=== PATIENT | female | born 1945 | race Caucasian/White ===

== ENCOUNTER → 2017-09-19 15:06 | Outpatient (CLI) | payer MEDICARE, SELFPAY ==
--- NOTE | 2017-09-19 15:10 | CT_ITS ---
STUDY: CT SCAN HIP LEFT REASON FOR EXAM: Female, 72 years old. Left hip pain following a fall. RADIATION DOSAGE (If Supplied By Facility): CTDIvol = ( 15.37 ) mGy, DLP = ( 575.92 ) mGycm. Individualized dose optimization techniques were used for this CT.? TECHNIQUE: Multiple axial tomographic images were obtained of the left hip without intravenous contrast administration. Coronal and sagittal reconstruction was obtained as well. COMPARISON: None. FINDINGS: Degenerative spur is seen along the superior lateral portion of the acetabulum is a mild degree of joint space narrowing. There is no evidence of fracture or dislocation. 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 There is no evidence of fracture or dislocation. Electronically Signed: Bob Hester MD at 15:43 EST Tel [phone], Service support ,
== END ==
PROVIDERS: Family Provider Family Medicine; PCP Family Medicine; Visit Provider Physician Assistant
DX: M16.12 Unilateral primary osteoarthritis, left hip (principal); M25.552 Pain in left hip
CPT/HCPCS: 73700

== ENCOUNTER 2021-09-07 10:34 | Emergency (ER) | payer MEDICARE, MEDICAID, SELFPAY ==
[2021-09-07 10:37] VITALS: BP 149/110; PULSE 89; RESP 22; TEMP 35.8; BMI 21.2
[2021-09-07 10:58] VITALS: BP 166/73; PULSE 91; PULSE 92; RESP 26; TEMP 35.8; O2SAT 96; O2SAT 97
--- NOTE | 2021-09-07 11:11 | EKG12_ITS ---
Test Reason : BACK PAIN Blood Pressure : / mmHG Vent. Rate : 088 BPM Atrial Rate : 088 BPM P-R Int : 148 ms QRS Dur : 084 ms QT Int : 372 ms P-R-T Axes : 083 078 075 degrees QTc Int : 450 ms Normal sinus rhythm Normal ECG Confirmed by MAXIMILIANO MCMAHON, ABIGAIL ([id number]), pictures editor AYDE NEGRON ([id number]) on 09/08/2021 9:37:39 AM Referred By: YUMIKO Confirmed By:ABIGAIL VIERA MD
--- NOTE | 2021-09-07 11:11 | RAD_ITS ---
STUDY: X-RAY CHEST REASON FOR EXAM: Female, 76 years old. Chest pain TECHNIQUE: Single AP portable view of the chest. COMPARISON: Comparison is made with prior study 03/23/2015. FINDINGS: EKG electrodes are seen. There is hyperinflation of the lungs consistent with chronic obstructive lung disease (COPD). Stable calcified granuloma in the right upper lobe. There is no demonstrated pleural abnormality. Normal size heart. Normal mediastinum and kaylen. Normal visualized pulmonary arteries. There is atherosclerotic calcification of the aortic arch with tortuosity. There are diffuse degenerative changes of the visualized thoracic spine. There is degenerative osteoarthritis of the bilateral shoulders. There is no demonstrated abnormality of the visualized soft tissue structures of the upper abdomen. RAD/Chest 1 View (Portable) IMPRESSION: Hyperinflation. No acute abnormality is seen. Electronically Signed: Bob Hester MD at 11:52 EST , Service support ,
--- NOTE | 2021-09-07 11:20 | EDS_ITS ---
HPI History of Present Illness Chief Complaint: Shortness of Breath Narrative Narrative: 76-year-old female with history of COPD, diabetes presenting with right rib pain. She reports that it started on Saturday. She was seen and evaluated on 09/05/2021 at [facility] and had blood work and imaging done. She reports that she had a CAT scan of the chest. She reports that she had a bad experience with the doctor because he would not do a chest x-ray. Patient does not know what her blood work showed PFSH PFS Home Medications Creon 2 ea PO TIDCM 03/23/15 [History Last Taken 03/22/15] budesonide-formoterol [Symbicort] 1 puff INHALATION BID 03/23/15 [History Last Taken 03/22/15] ezetimibe [Zetia] 10 mg PO DAILY 03/23/15 [History Last Taken 03/22/15] pregabalin [Lyrica] 300 mg PO QHS 03/23/15 [History Last Taken 03/22/15] amitriptyline 75 mg PO QHS 07/11/16 [History Last Taken Unknown] Invokana 300 mg PO DAILY 10/22/16 [History Last Taken Unknown] acetaminophen 1,000 mg PO Q8 #60 tablet 11/03/16 [Rx Last Taken Unknown] albuterol sulfate 2.5 mg INHALATION Q6HWA.RT vial.neb. 11/03/16 [Rx Last Taken Unknown] budesonide 0.5 mg INHALATION Q12H.RT ampul.neb. 11/03/16 [Rx Last Taken U nknown] aspirin 81 mg PO DAILY 12/28/16 [History Last Taken Unknown] hydrocodone-acetaminophen 1 - 2 tab PO Q4H PRN PRN #20 tablet 12/28/16 [Rx Last Taken Unknown] donepezil 10 mg PO QHS 09/07/21 [History Last Taken Unknown] lidocaine [Lidoderm] 1 patch TOPICAL DAILY PRN #1 ea 09/07/21 [Rx Last Taken Unknown] Allergy/AdvReac Type Severity Reaction Status Date / Time rosuvastatin [From Crestor] Allergy BREATHING Verified 09/07/21 11:02 PROBLEMS ALL STATINS Allergy Other Uncoded 09/07/21 11:02 Social History Smoking Status: Current every day smoker tobacco type: cigarettes ROS ROS ED Constitutional Constitutional ED: Denies chills or fever(s) Eyes Eyes: Denies blurry vision or change in vision ENT ENT ED: Denies rhinorrhea or sore throat Cardiovascular Cardiovascular: Reports as per HPI Respiratory/Chest Respiratory/Chest: Reports cough and dyspnea Gastrointestinal Gastrointestinal: Denies abdominal pain or nausea Genitourinary Genitourinary ED: Denies dysuria or hematuria Musculoskeletal Musculoskeletal: Denies arthralgias or myalgias Integumentary Denies Abrasions or rash Neurologic Neurologic: Denies headache(s) or weakness EXAM Physical Exam Const Vital Signs: 09/07/21 10:37 09/07/21 10:58 09/07/21 13:12 Temperature 96.5 F L 96.5 F L Temperature Source Temporal Temporal Pulse Rate 89 91 83 Respiratory Rate 22 H 26 H 15 Blood Pressure 149/110 H 166/73 H 127/51 H Blood Pressure Mean 123 104 76 Pulse Ox 97 96 Oxygen Delivery Method Room Air Room Air Positive well developed General Appearance ED: well developed and NAD; Negative for pallor HEENT Reports moist mucous membranes normocephalic and atraumatic Eyes PERRL and EOMs intact bilaterally General Eye ED: Negative for pale conjunctiva or scleral icterus Chest Wall Chest Narrative: Tenderness to palpation diffusely over the right ribs. No c repitance. Equal symmetric breath sounds and chest wall rise. Resp normal respiratory effort and clear to auscultation bilaterally Effort and Inspection: Negative for respiratory distress Cardio regular rate and regular rhythm Extremity normal to inspection General Extremety ED: Negative for edema or tenderness General Extremity: Negative for edema Neuro oriented x3 Sensorium / Orientation: awake and alert Psych mental status grossly normal Skin General Skin Exam: Negative for jaundice or pallor Heart Score History: Slightly/Non-Suspicious ECG: Normal Age: >/= 65 years Risk Factors: >/= 3 Risk Factors or History of CAD Score: 4 MDM MDM MDM Narrative Medical decision making narrative: Patient presenting with right-sided rib pain which has been present since Saturday. She states that she was already seen at [facility] patient has had emergency room and evaluated. I obtained an EKG on arrival due to her rib pain and on my interpretation this is a sinus rhythm with a ventricular rate of 80 bpm without sign of ischemic change. Her chest x-ray on my interpretation shows no acute cardiopulmonary process. CBC and BMP are unremarkable. LFTs are normal with exception of an alkaline phosphatase of 118. Lipase is 140. High-sensitivity troponin initially is 11 and at 2 hours that is 8. Sensation on the right compared I obtained her work- up through [facility] from [place] and she did have a full work-up with a normal CBC, CMP. Her BNP was 113 and the range for them is a 0-4 50 so this was negative. High-sensitivity for heart enzymes were normal. Lipase was slightly elevated at 346 from their reference range of 23-300 however it is not significantly high and it is normal here today. Patient had a CTA of the chest which did not show any infiltrates, dissection, home Eric emboli. She had a CT of the abdomen and pelvis which was negative for any acute findings. She states she continues to have pain. She believes this is due to coughing. I spoke with her primary care physician Dr. Ashraf. He states that she always has pain somewhere in her body. He treats her with Lyrica and with Ultram. He states that the rib pain is new. He recommended not changing her pain medications. He did not want me to supplement with her with anything stronger. I did give her some Lidoderm patches and I placed one on her ribs while she was here. I do not believe she needs a repeat CTA. The patient and her daughter were counseled on my conversation with her primary care physician and they are amenable to this course. He wanted to see them in office and follow-up. Patient will be discharged home in stable condition. Impression: 1. Right-sided chest pain 2. Cough Lab Data Labs: Laboratory Results - last 24 hr 09/07/21 09/07/21 09/07/21 11:17 11:17 13:17 WBC 7.8 RBC 4.27 Hgb 13.5 Hct 40.4 MCV 94.6 MCH 31.6 MCHC 33.4 RDW Std Deviation 47.7 H RDW Coeff of Robert 13.6 Plt Count 276 MPV 9.5 Immature Gran % (Auto) 0.300 Neut % (Auto) 74.8 H Lymph % (Auto) 17.0 L [place] % (Auto) 6.5 Eos % (Auto) 0.9 Baso % (Auto) 0.5 Absolute Neuts (auto) 5.9 Absolute Lymphs (auto) 1.33 Nucleated RBC % 0 Sodium 136 Potassium 3.9 Chloride 101 Carbon Dioxide 28.0 Anion Gap 7 BUN 14 Creatinine 0.80 Estim Creat Clear Calc 49.49 Est GFR (MDRD) Af Amer 90 Est GFR (MDRD) Non-Af 74 BUN/Creatinine Ratio 17.5 Glucose 196 H Calcium 9.7 Total Bilirubin 0.30 Direct Bilirubin 0.12 AST 59 H ALT 32 Alkaline Phosphatase 118 H Troponin I High Sens 11 8 Total Protein 6.6 Albumin 3.3 Globulin 3.3 Lipase 140 Radiography Diagnostic Testing: Clinical Impression(s) from Imaging Studies Chest X-Ray 09/07/21 11:11 IMPRESSION: Hyperinflation. No acute abnormality is seen. Electronically Signed: Bob Hester MD at 11:52 EST , Service support , Discharge Plan Triage Chief Complaint: Shortness of Breath ED Provider: Valeriano Bellamy Dx/Rx/DC Orders Instructions: ED Chest Pain, Noncardiac Prescriptions: New lidocaine [Lidoderm] 5 % adhesive patch,medicated 1 patch topical DAILY PRN (Reason: pain) Qty: 1 RF: 0 No Action ezetimibe [Zetia] 10 MG tablet 10 mg PO DAILY RF: 0 pregabalin [Lyrica] 150 MG capsule 300 mg PO QHS RF: 0 budesonide-formoterol [Symbicort] 6.9 GM HFA aerosol inhaler 1 puff inhalation BID RF: 0 Creon 1 EACH capsule,delayed release(DR/EC) 2 ea PO TIDCM RF: 0 amitriptyline 75 MG tablet 75 mg PO QHS RF: 0 Invokana 300 MG tablet 300 mg PO DAILY RF: 0 albuterol sulfate 2.5 MG/3 ML solution for nebulization 2.5 mg inhalation Q6HWA.RT RF: 0 acetaminophen 500 MG tablet 1,000 mg PO Q8 Qty: 60 RF: 0 budesonide 0.5 MG/2 ML suspension for nebulization 0.5 mg inhalation Q12H.RT RF: 0 aspirin 325 MG tablet 81 mg PO DAILY RF: 0 hydrocodone-acetaminophen 1 TABLET tablet 1 - 2 tab PO Q4H PRN PRN (Reason: Pain) Qty: 20 RF: 0 donepezil 10 mg tablet 10 mg PO QHS RF: 0 Primary Care Provider: Kal Ashraf Referrals: Kal Ashraf DO [Primary Care Provider] - Disposition Disposition: Home, Self Care
[2021-09-07 11:26] LABS: Absolute Lymphocyte Count 1.33 X10^3/uL (0.83-4.51); Absolute Neutrophil Count 5.9 X10^3/uL (2.0-7.7); Basophil# 0.04 X10^3/uL; Basophil% 0.5 % (0-1); Eosinophil# 0.07 X10^3/uL; Eosinophils% 0.9 % (0-5); Hematocrit 40.4 % (37-47); Hemoglobin 13.5 g/dL (12.0-15.0); Lymphocyte # 1.33 X10^3/ul (0.83-4.51); Mean Corp Hgb Conc 33.4 g/dL (32-36); Mean Corpuscular Hgb 31.6 pg (27.0-32.0); Mean Corpuscular Volume 94.6 fL (81-99); Mean Platelet Vol. 9.5 fl (6.2-12.0); Monocyte# 0.51 X10^3/uL; Monocyte% 6.5 % (0-10); NRBC Flagged by Analyzer 0 % (0-5); Neutrophil # 5.85 X10^3/uL (2.7-7.7); Neutrophil % 74.8 % (47-70); Platelet Count 276 K/mm3 (150-450); RBC Distribution Width CV 13.6 % (11.6-14.6); RBC Distribution Width SD 47.7 fl (35.1-43.9); Red Blood Count 4.27 M/mm3 (4.2-5.4); White Blood Count 7.8 K/mm3 (4.4-11.0)
[2021-09-07] MEDS: Morphine 4 MG/ML Syringe IV (11:26)
[2021-09-07] MEDS: Ondansetron 4 MG/2 ML Vial IV (11:27)
[2021-09-07 11:44] LABS: Anion Gap 7 (5-15); BUN 14 mg/dL (7-18); BUN/Creat Ratio 17.5 RATIO (10-20); Calcium,Total 9.7 mg/dL (8.5-10.1); Chloride 101 mmol/L (98-107); EST Glomerular Filtration Rate 74 mL/min (>60); Est Glom Filt Rate - Afr Amer 90 mL/min (>60); Estimated Creatinine Clearance 49.49 ml/min; Glucose 196 mg/dL (74-106); Potassium 3.9 mmol/L (3.5-5.1); Sodium Level 136 mmol/L (136-145); Troponin-I HS 11 pg/mL (3.0-54.0)
[2021-09-07 13:12] VITALS: BP 127/51; PULSE 83; RESP 15; O2SAT 96
[2021-09-07 13:49] LABS: AST(SGOT) 59 U/L (15-37); Alanine Aminotransfer ALT/SGPT 32 U/L (13-56); Albumin, Serum 3.3 g/dL (3.2-5.0); Alkaline Phosphatase 118 U/L (45-117); Bilirubin, Direct 0.12 mg/dL (0.00-0.30); Globulin 3.3 g/dL (2.2-4.2); Lipase 140 U/L (73-393); Protein, Total 6.6 g/dL (6.4-8.2); Troponin-I HS 8 pg/mL (3.0-54.0)
[2021-09-07] MEDS: Lidocaine 5% Patch 1 PATCH TOPICAL (13:52)
[2021-09-07 14:23] VITALS: BP 135/75; PULSE 68; RESP 15; O2SAT 98
== END 2021-09-07 14:24 | disposition home or self-care (01) ==
PROVIDERS: Emergency Provider Student in an Organized Health Care Education/Training Program; PCP Family Medicine; Visit Provider Student in an Organized Health Care Education/Training Program
DX: R07.9 Chest pain, unspecified (principal); J44.9 Chronic obstructive pulmonary disease, unspecified; E11.9 Type 2 diabetes mellitus without complications; R05.9 Cough, unspecified; F17.210 Nicotine dependence, cigarettes, uncomplicated; Z79.84 Long term (current) use of oral hypoglycemic drugs; Z79.82 Long term (current) use of aspirin; Z79.899 Other long term (current) drug therapy
CPT/HCPCS: 71045; 80048; 80076; 83690; 84484; 85025; 93005; 96374; 96375; 99284; A4216; J2405

== ENCOUNTER → 2025-03-05 | Outpatient (CLI) | payer MEDICARE, MEDICAID, SELFPAY ==
--- NOTE | 2025-03-05 15:08 | CDU_ITS ---
Reason For Study Reason For Study: Retinal ischemia Rt. Velocities/BP Lt. Velocities/BP Prox CCA 57.9/10.7 cm/sec. Prox CCA 75.3/11.4 cm/sec. Mid CCA 51.3/11.6 cm/sec. Mid CCA 67.9/9 cm/sec. Dist CCA 52.2/9.7 cm/sec. Dist CCA 58.1/9 cm/sec. Prox ICA 106/24.9 cm/sec. Prox ICA 81.4/13.9 cm/sec. Mid ICA 108.4/16.3 cm/sec. Mid ICA 65.5/16.3 cm/sec. Dist ICA 94.9/17.6 cm/sec. Dist ICA 92.7/22.3 cm/sec. Rt. ICA/CCA = 2.11. Lt. ICA/CCA = 1.37. Prox ECA 69.2/3.1 cm/sec. Prox ECA 90 cm/sec. Rt. Vert. 42.1/9 cm/sec. Lt. Vert. 36/9 cm/sec. Right Extracranial There is intimal thickening but no significant atherosclerotic plaque noted in the right common carotid artery. There is heterogeneous, irregular atherosclerotic plaque noted in the right internal carotid artery. There is intimal thickening but no significant atherosclerotic plaque noted in the right external carotid artery. Antegrade flow is noted in the right vertebral artery. Left Extracranial There is intimal thickening but no significant atherosclerotic plaque noted in the left common carotid artery. There is heterogeneous, irregular atherosclerotic plaque noted in the left internal carotid artery. There is heterogeneous, irregular atherosclerotic plaque noted in the left external carotid artery. Antegrade flow is noted in the left vertebral artery. Procedure Carotid Duplex [id number]. This is a Carotid Duplex examination using B-mode, color flow and specral Doppler. Exam performed in department. VL/Carotid Duplex Ultrasound Interpretation Summary Mild (<50%) stenosis right extracranial internal carotid. Mild (<50%) stenosis left extracranial internal carotid. Flow within the vertebral arteries is antegrade bilaterally. Heavy plaque burden is noted in the internal carotid arteries bilaterally. There appears to be an ulcerated plaque in the proximal right inte rnal carotid artery. Ordering Physician: Bin Stanley Referring Physician: Benedict Curtis Performed By: Helena Conn RVT
== END | disposition home or self-care (01) ==
LOC: CVS 15:04
PROVIDERS: PCP Internal Medicine; Referring Provider Ophthalmology; Visit Provider Ophthalmology
DX: H35.82 Retinal ischemia (principal)
CPT/HCPCS: 93880

== ENCOUNTER → 2025-06-15 | Outpatient (CLI) | payer MEDICARE, MEDICAID, SELFPAY ==
--- NOTE | 2025-06-15 16:57 | CT_ITS ---
PROCEDURE: CT/CTA Head AND Neck W/ Contrast
[2025-06-15 17:21] LABS: CREATININE FINGERSTICK < 1.0 mg/dL (0.55-1.02); EGFR FINGERSTICK > 60.0000 mL/min (>60)
== END | disposition home or self-care (01) ==
LOC: CT 16:55
PROVIDERS: PCP Internal Medicine; Referring Provider Physician Assistant; Visit Provider Physician Assistant
DX: Z01.818 Encounter for other preprocedural examination (principal); E11.9 Type 2 diabetes mellitus without complications; Z79.84 Long term (current) use of oral hypoglycemic drugs; I65.29 Occlusion and stenosis of unspecified carotid artery
CPT/HCPCS: 70496; 70498; Q9967; A4216